=== PATIENT | female | born 1940 ===

== ENCOUNTER 2017-08-10 13:04 | Emergency (ER) | payer MEDICARE, MEDICAID ==
[2017-08-10 13:04] VITALS: BMI 32.4
[2017-08-10 13:09] VITALS: TEMP 98; O2SAT 94
[2017-08-10] MEDS ORDERED: Sodium Chloride 0.9% 1,000 ML IV STA (13:26)
--- NOTE | 2017-08-10 13:28 | ED PDOC ---
Syncope/Near Syncope/Dizziness Time Seen by Provider: 08/10/17 13:14 Chief Complaint (Nursing): Weakness/Neurological Deficit Chief Complaint (Provider): Weakness and Dizziness History Per: Patient History/Exam Limitations: no limitations Onset/Duration Of Symptoms: Hrs (prior to arrival ) Additional Complaint(s): Lakesha Johnson is a 77 year old female with a past medical history of arthritis, hypertension, hyperthyroidism, malignancy, CAD, osteoporosis, and diabetes presenting to the ED for an evaluation of feeling weak and dizzy while walking earlier today. She denies any loss of consciousness, chest pain, palpitations, or shortness of breath. The patients states the patient became pale but then recovered. PMD: Ba Granados MD Past Medical History Reviewed: Historical Data, Nursing Documentation, Vital Signs Vital Signs: Last Vital Signs Temp 98.0 F 08/10/17 13:05 Pulse 78 08/10/17 13:05 Resp 16 08/10/17 13:05 BP 93/47 L 08/10/17 13:05 Pulse Ox 94 L 08/10/17 13:05 - Medical History PMH: Arthritis, CAD, Diabetes, HTN, Hyperthyroidism, Malignancy, Osteoporosis Denies: CHF, COPD, HIV, Hypercholesterolemia, Hypothyroidism, Chronic Kidney Disease, Rheumatoid Arthritis - Surgical History Surgical History: Appendectomy - Family History Family History: States: Unknown Family Hx - Home Medications Home Medications: Ambulatory Orders Medication Instructions Recorded amLODIPine [Norvasc] 1 tab PO DAILY 03/08/15 Acetaminophen [Tylenol 325mg tab] 650 mg PO Q6 PRN #0 tab 03/24/15 Carvedilol [Coreg] 12.5 mg PO Q12 #0 tab 03/24/15 Losartan [Cozaar] 100 mg PO DAILY 03/24/15 methIMAzole [Tapazole] 10 mg PO DAILY #0 tab 03/24/15 Omeprazole [Prilosec] 20 mg PO DAILY 03/31/15 Potassium Chloride [K-Dur 10] 10 meq PO DAILY 03/31/15 predniSONE [Prednisone] 10 mg PO DAILY 03/31/15 - Allergies Allergies/Adverse Reactions: Allergies Allergy/AdvReac Type Severity Reaction Status Date / Time No Known Allergies Allergy Verified 08/10/17 13:05 Review of Systems ROS Statement: Except As Marked, All Systems Reviewed And Found Negative Constitutional: Positive for: Weakness Cardiovascular: Negative for: Chest Pain, Palpitations Respiratory: Negative for: Shortness of Breath Neurological: Positive for: Dizziness Physical Exam - Reviewed Nursing Documentation Reviewed: Yes Vital Signs Reviewed: Yes - Physical Exam Appears: Positive for: Non-toxic, No Acute Distress Head Exam: Positive for: ATRAUMATIC, NORMOCEPHALIC Skin: Positive for: Normal Color, Warm, Dry Eye Exam: Positive for: Normal appearance, EOMI, PERRL ENT: Positive for: Normal ENT Inspection Neck: Positive for: Normal, Painless ROM Cardiovascular/Chest: Positive for: Regular Rate, Rhythm, Chest Non Tender Respiratory: Positive for: Normal Breath Sounds. Negative for: Respiratory Distress Gastrointestinal/Abdominal: Positive for: Normal Exam, Soft. Negative for: Tenderness Back: Positive for: Normal Inspection Extremity: Positive for: Normal ROM. Negative for: Deformity Neurologic/Psych: Positive for: Alert, Oriented (x3). Negative for: Motor/ Sensory Deficits - Laboratory Results Result Diagrams: 08/10/17 14:18 08/10/17 14:18 - ECG ECG: Positive for: Interpreted By Me, Viewed By Me ECG Rhythm: Positive for: Sinus Rhythm (normal). Negative for: ST/T Changes Rate: 80 O2 Sat by Pulse Oximetry: 94 (RA) Pulse Ox Interpretation: Normal Medical Decision Making Medical Decision Making: Time: 13:14 Impression: Weakness and Dizziness Plan: * ED EKG * CMP * CBC (With differential) * NS 1,000 ml IV 100 mls/hr * Reevaluation Scribe Attestation: Documented by Alba Steel, acting as a scribe for Gerhard Price MD. Provider Scribe Attestation: All medical record entries made by the Scribe were at my direction and personally dictated by me. I have reviewed the chart and agree that the record accurately reflects my personal performance of the history, physical exam, medical decision making, and the department course for this patient. I have also personally directed, reviewed, and agree with the discharge instructions and disposition. Disposition - Clinical Impression Clinical Impression: Hypokalemia - Patient ED Disposition Is Patient to be Admitted: No Counseled Patient/Family Regarding: Studies Performed, Diagnosis, Need For Followup, Rx Given - Disposition Referrals: [facility] [Outside] Disposition: Routine/Home Disposition Time: 17:05 Condition: FAIR Instructions: Hypokalemia (ED) Forms: [employer] ([employer]w[place])
[2017-08-10 13:32] VITALS: PULSE 80
[2017-08-10 14:35] LABS: BASO % 0.4 % (0.0-2.0); EOS # 0.5 K/uL (0.0-0.7); EOS % 4.7 % (0.0-4.0); HEMATOCRIT 38.5 % (34.0-47.0); LYMPH % 21.1 % (20.0-40.0); MEAN CELL VOLUME 89.2 fl (81.0-99.0); MEAN CORPUSCULAR HEMOGLOBIN 28.6 pg (27.0-31.0); MEAN PLATELET VOLUME 8.5 fl (7.2-11.7); MONO # 0.6 K/uL (0.0-0.8); MONO % 5.8 % (0.0-10.0); NEUT # 6.6 K/uL (1.8-7.0); RED CELL DISTRIBUTION WIDTH 15.2 % (11.5-14.5); WHITE BLOOD COUNT 9.7 K/uL (4.8-10.8)
[2017-08-10 14:40] LABS: BILIRUBIN,TOTAL 0.6 mg/dl (0.2-1.3); CALCIUM 8.8 mg/dL (8.4-10.2); TOTAL PROTEIN 7.6 G/DL (6.3-8.2)
[2017-08-10] MEDS ORDERED: Potassium CL 10mEq/100ml 100 ML IVPB ONE (14:45)
[2017-08-10] MEDS ORDERED: Potassium Chloride 20 mEq ER Tab PO ONE ×2 (14:45→15:34)
[2017-08-10 17:45] VITALS: RESP 14
[2017-08-10 17:46] VITALS: BP 129/81
--- NOTE | 2017-08-11 07:34 | CARD ---
APPROVED REPORT EKG Measurement Heart [id number] <Conclusion> Sinus rhythm with premature atrial complexes Left axis deviation Prolonged QT Abnormal ECG
== END 2017-08-10 17:10 | disposition home or self-care (01) ==
LOC: H.ER 13:04
DX: E87.6 Hypokalemia (principal); E05.90 Thyrotoxicosis, unspecified without thyrotoxic crisis or storm; E11.9 Type 2 diabetes mellitus without complications; I10 Essential (primary) hypertension; I25.10 Atherosclerotic heart disease of native coronary artery without angina pectoris; I49.1 Atrial premature depolarization; M81.0 Age-related osteoporosis without current pathological fracture
CPT/HCPCS: 80053; 82948; 85025; 93005; 99285; J3480; J7040

== ENCOUNTER 2017-12-03 13:40 | Emergency (ER) | payer MEDICARE, MEDICAID ==
[2017-12-03 13:40] VITALS: BMI 32.4
[2017-12-03] MEDS ORDERED: Sodium Chloride 0.9% 1,000 ML IV STA (15:23)
--- NOTE | 2017-12-03 15:26 | ED PDOC ---
HPI: Abdomen Time Seen by Provider: 12/03/17 14:43 Chief Complaint (Nursing): GI Problem Chief Complaint (Provider): "flu" History Per: Patient Additional Complaint(s): 77 yp female, PMH of HTN and DM, presents to ED for evaluation of tactile fever , congestion, coughing, generalized weakness, abdominal pain radiating to back, diarrhea x 2 days, with nausea. Vomited x 1 this morning. Pt did not recieve flu shot this year. Pt admits to not eating and drinking much she she has been sick. Past Medical History Reviewed: Historical Data, Nursing Documentation, Vital Signs Vital Signs: Last Vital Signs Temp 98.2 F 12/03/17 17:59 Pulse 72 12/03/17 17:59 Resp 18 12/03/17 17:59 BP 137/73 12/03/17 17:59 Pulse Ox 97 12/03/17 17:59 - Medical History PMH: Arthritis, CAD, Diabetes, HTN, Hyperthyroidism, Malignancy, Osteoporosis Denies: CHF, COPD, HIV, Hypercholesterolemia, Hypothyroidism, Chronic Kidney Disease, Rheumatoid Arthritis - Surgical History Surgical History: Appendectomy - Family History Family History: States: Unknown Family Hx - Living Arrangements Living Arrangements: With Family - Social History Current smoker - smoking cessation education provided: No Alcohol: None Drugs: Denies - Home Medications Home Medications: Ambulatory Orders Medication Instructions Recorded amLODIPine [Norvasc] 1 tab PO DAILY 03/08/15 Acetaminophen [Tylenol 325mg tab] 650 mg PO Q6 PRN #0 tab 03/24/15 Carvedilol [Coreg] 12.5 mg PO Q12 #0 tab 03/24/15 Losartan [Cozaar] 100 mg PO DAILY 03/24/15 methIMAzole [Tapazole] 10 mg PO DAILY #0 tab 03/24/15 Omeprazole [Prilosec] 20 mg PO DAILY 03/31/15 Potassium Chloride [K-Dur 10] 10 meq PO DAILY 03/31/15 predniSONE [Prednisone] 10 mg PO DAILY 03/31/15 Ibuprofen [Motrin Tab] 800 mg PO Q8 #20 tab 12/03/17 Oseltamivir [Tamiflu] 75 mg PO BID 5 Days cap 12/03/17 - Allergies Allergies/Adverse Reactions: Allergies Allergy/AdvReac Type Severity Reaction Status Date / Time No Known Allergies Allergy Verified 10/18/17 13:05 Review of Systems ROS Statement: Except As Marked, All Systems Reviewed And Found Negative Constitutional: Positive for: Fever, Weakness ENT: Positive for: Nose Congestion Respiratory: Positive for: Cough Gastrointestinal: Positive for: Nausea, Vomiting, Abdominal Pain, Diarrhea Physical Exam - Reviewed Nursing Documentation Reviewed: Yes Vital Signs Reviewed: Yes - Physical Exam Appears: Positive for: Well, Non-toxic, No Acute Distress Head Exam: Positive for: ATRAUMATIC, NORMAL INSPECTION, NORMOCEPHALIC Skin: Positive for: Normal Color, Warm, DRY Eye Exam: Positive for: EOMI, Normal appearance, PERRL ENT: Positive for: Normal ENT Inspection Neck: Positive for: Normal, Painless ROM Cardiovascular/Chest: Positive for: Regular Rate, Rhythm Respiratory: Positive for: CNT, Normal Breath Sounds Gastrointestinal/Abdominal: Positive for: Normal Exam, Bowel Sounds, Soft Back: Positive for: Normal Inspection Extremity: Positive for: Normal ROM Neurologic/Psych: Positive for: Alert, Oriented - Laboratory Results Result Diagrams: 12/03/17 15:50 12/03/17 15:50 - ECG O2 Sat by Pulse Oximetry: 98 Medical Decision Making Medical Decision Making: IV access established and treatment initiated with IVF and Zofran Diagnostics ordered Flu (+) CXR: NAD, as read by [facility] CBC resulted WNL COMP BUN 32, Cr 2.0 On re-eval, Pt reports feeling greatly improved Repeat vitals: T: 98.2 F P: 72 BP: 137/73 POX: 97% on RA Pt stable for discharge at this time. advised to follow up with PMD, return to ED with any concerns. Disposition - Clinical Impression Clinical Impression: Influenza - Patient ED Disposition Is Patient to be Admitted: No - Disposition Referrals: Ba Granados MD [Primary Care Provider] - Disposition: Routine/Home Disposition Time: 18:31 Condition: STABLE Prescriptions: Ibuprofen [Motrin Tab] 800 mg PO Q8 #20 tab Oseltamivir [Tamiflu] 75 mg PO BID 5 Days cap Instructions: Influenza (ED) Forms: [employer] (Ukrainian) Print Language: KOREAN - POA Present On Arrival: None
[2017-12-03 16:05] LABS: BASO # 0.1 K/uL (0.0-0.2); EOS % 0.4 % (0.0-4.0); HEMOGLOBIN 13.7 g/dL (12.0-16.0); LYMPH # 1.6 K/uL (1.0-4.3); LYMPH % 23.3 % (20.0-40.0); MEAN CORPUSCULAR HEMOGLOBIN 29.1 pg (27.0-31.0); MEAN CORPUSCULAR HGB CONC 33.3 g/dL (33.0-37.0); MEAN PLATELET VOLUME 8.5 fl (7.2-11.7); MONO # 0.7 K/uL (0.0-0.8); MONO % 10.8 % (0.0-10.0); NEUT # 4.3 K/uL (1.8-7.0); NEUT % 64.5 % (50.0-75.0); NRBC % 0.1 % (0.0-0.0); RBC 4.72 Mil/uL (3.80-5.20); RED CELL DISTRIBUTION WIDTH 15.5 % (11.5-14.5); WHITE BLOOD COUNT 6.7 K/uL (4.8-10.8)
[2017-12-03 16:10] LABS: MEAN CELL VOLUME 87.2 fl (81.0-99.0)
[2017-12-03 16:14] LABS: CALCIUM 8.6 mg/dL (8.4-10.2)
[2017-12-03 16:25] LABS: ALBUMIN 4.3 g/dL (3.5-5.0)
[2017-12-03 16:29] LABS: TROPONIN I 0.064 ng/mL (0.00-0.120)
--- NOTE | 2017-12-03 16:41 | RAD ---
HISTORY: cough and fever COMPARISON: Comparison chest 03/25/2015. Comparison also made with CTA of the chest dated 03/08/2015 TECHNIQUE: Chest PA and lateral FINDINGS: LUNGS: Linear atelectasis/ scarring seen in the right mid to upper lung field. Mild bibasilar atelectasis. PLEURA: No significant pleural effusion identified. No pneumothorax apparent. CARDIOVASCULAR: Heart appears borderline/ mildly enlarged. OSSEOUS STRUCTURES: Multilevel degenerative spondylosis of the thoracic spine. Minor chronic anterior wedge deformities of a few mid thoracic segments. VISUALIZED UPPER ABDOMEN: Normal. OTHER FINDINGS: Apparent multiple metallic clips overlying the upper mediastinum likely due to thyroidectomy however correlation with surgical history recommended. . Note that the there was marked enlargement right lobe thyroid gland on prior CTA chest. IMPRESSION: Linear atelectasis/ scarring seen in the right mid to upper lung field. Mild bibasilar atelectasis.
[2017-12-03 18:00] VITALS: BP 137/73; PULSE 72; RESP 18; TEMP 98.2
[2017-12-03 18:27] VITALS: O2SAT 98
== END 2017-12-03 18:25 | disposition home or self-care (01) ==
LOC: H.ER 13:40
DX: J11.1 Influenza due to unidentified influenza virus with other respiratory manifestations (principal); R10.9 Unspecified abdominal pain; R19.7 Diarrhea, unspecified; E05.90 Thyrotoxicosis, unspecified without thyrotoxic crisis or storm; E11.9 Type 2 diabetes mellitus without complications; I10 Essential (primary) hypertension; I25.10 Atherosclerotic heart disease of native coronary artery without angina pectoris; M81.0 Age-related osteoporosis without current pathological fracture
CPT/HCPCS: 71046; 80053; 82150; 83690; 84484; 85025; 87804; 96361; 96374; 99285; J2405; J7040

== ENCOUNTER 2017-12-04 12:43 | Inpatient (IN) | payer MEDICARE, MEDICAID ==
[2017-12-04] MEDS ORDERED: Sodium Chloride 0.9% 1,000 ML IV STA (12:59)
--- NOTE | 2017-12-04 13:04 | ED PDOC ---
Syncope/Near Syncope/Dizziness Time Seen by Provider: 12/04/17 12:54 Chief Complaint (Nursing): Syncope History Per: Family Onset/Duration Of Symptoms: Days (1) Current Symptoms Are (Timing): Still Present Activity At Onset Of Symptoms: Sitting Additional Complaint(s): Nausea and vomiting, Seen yesterday with Flu-like sxs, statred on Tamiflu. Vomited today, while going to bathroom son states had syncopal episode unknown duration. No fever, has been coughing. Past Medical History Vital Signs: Last Vital Signs Temp 97.9 F 12/04/17 12:45 Pulse 78 12/04/17 12:45 Resp 16 12/04/17 12:45 BP 80/50 L 12/04/17 12:45 Pulse Ox 98 12/04/17 12:45 - Medical History PMH: Arthritis, CAD, Diabetes, HTN, Hyperthyroidism, Malignancy, Osteoporosis Denies: CHF, COPD, HIV, Hypercholesterolemia, Hypothyroidism, Chronic Kidney Disease, Rheumatoid Arthritis - Surgical History Surgical History: Appendectomy - Family History Family History: States: Unknown Family Hx - Immunization History Hx Tetanus Toxoid Vaccination: No Hx Influenza Vaccination: No Hx Pneumococcal Vaccination: No - Home Medications Home Medications: Ambulatory Orders Medication Instructions Recorded amLODIPine [Norvasc] 1 tab PO DAILY 03/08/15 Acetaminophen [Tylenol 325mg tab] 650 mg PO Q6 PRN #0 tab 03/24/15 Carvedilol [Coreg] 12.5 mg PO Q12 #0 tab 03/24/15 Losartan [Cozaar] 100 mg PO DAILY 03/24/15 methIMAzole [Tapazole] 10 mg PO DAILY #0 tab 03/24/15 Omeprazole [Prilosec] 20 mg PO DAILY 03/31/15 Potassium Chloride [K-Dur 10] 10 meq PO DAILY 03/31/15 predniSONE [Prednisone] 10 mg PO DAILY 03/31/15 Ibuprofen [Motrin Tab] 800 mg PO Q8 #20 tab 12/03/17 Oseltamivir [Tamiflu] 75 mg PO BID 5 Days cap 12/03/17 - Allergies Allergies/Adverse Reactions: Allergies Allergy/AdvReac Type Severity Reaction Status Date / Time No Known Allergies Allergy Verified 08/10/17 13:05 Review of Systems ROS Statement: Except As Marked, All Systems Reviewed And Found Negative Constitutional: Positive for: Weakness Respiratory: Positive for: Cough Gastrointestinal: Positive for: Vomiting Neurological: Positive for: Other (syncope) Physical Exam - Reviewed Nursing Documentation Reviewed: Yes Vital Signs Reviewed: Yes - Physical Exam Appears: Positive for: Non-toxic, No Acute Distress Head Exam: Positive for: ATRAUMATIC, NORMAL INSPECTION, NORMOCEPHALIC Skin: Positive for: Warm, Pallor Eye Exam: Positive for: EOMI, Normal appearance, PERRL ENT: Positive for: Normal ENT Inspection Neck: Positive for: Normal, Painless ROM Cardiovascular/Chest: Positive for: Regular Rate, Rhythm Respiratory: Positive for: Rhonchi. Negative for: Wheezing, Respiratory Distress Gastrointestinal/Abdominal: Positive for: Normal Exam, Bowel Sounds, Soft Back: Positive for: Normal Inspection Extremity: Positive for: Normal ROM Neurologic/Psych: Positive for: Alert, Oriented. Negative for: Motor/Sensory Deficits - Laboratory Results Result Diagrams: 12/04/17 13:20 - ECG O2 Sat by Pulse Oximetry: 98 Disposition - Clinical Impression Clinical Impression: Syncope, Influenza - Patient ED Disposition Is Patient to be Admitted: Yes - Disposition Disposition Time: 15:37 Condition: FAIR Forms: [employer] (Turkish) - Pt Status Changed To: Hospital Disposition Of: Observation - POA Present On Arrival: None
[2017-12-04 14:00] LABS: VENOUS BLOOD GAS BASE EXCESS 2.5 mmol/L (0.0-2.0); VENOUS BLOOD GAS PCO2 53 mmHg (40-60); VENOUS BLOOD GAS PO2 35 mm/Hg (30-55); VENOUS BLOOD PH 7.35 (7.32-7.43)
--- NOTE | 2017-12-04 14:09 | CT ---
PROCEDURE: CT HEAD WITHOUT CONTRAST. HISTORY: r/o bleed COMPARISON: None available. TECHNIQUE: Axial computed tomography images were obtained through the head/brain without intravenous contrast. Radiation dose: Total exam DLP = 1338.27 mGy-cm. This CT exam was performed using one or more of the following dose reduction techniques: Automated exposure control, adjustment of the mA and/or kV according to patient size, and/or use of iterative reconstruction technique. FINDINGS: HEMORRHAGE: No intracranial hemorrhage. BRAIN: Examination limited by extensive patient motion artifact despite attempts at repeat imaging of the posterior fossa. No intracranial mass. No significant atrophy. No white matter ischemic change evident. VENTRICLES: Unremarkable. No hydrocephalus. CALVARIUM: Unremarkable. PARANASAL SINUSES: Unremarkable as visualized. No significant inflammatory changes. MASTOID AIR CELLS: Unremarkable as visualized. No inflammatory changes. OTHER FINDINGS: None. IMPRESSION: Limited examination due to patient motion. No intracranial hemorrhage. No evidence of acute infarct.
[2017-12-04 14:16] LABS: BASO # 0.1 K/uL (0.0-0.2); BASO % 0.8 % (0.0-2.0); EOS % 0.4 % (0.0-4.0); HEMOGLOBIN 13.3 g/dL (12.0-16.0); LYMPH # 1.6 K/uL (1.0-4.3); LYMPH % 23.1 % (20.0-40.0); MEAN CELL VOLUME 87.8 fl (81.0-99.0); MEAN CORPUSCULAR HEMOGLOBIN 28.9 pg (27.0-31.0); MEAN CORPUSCULAR HGB CONC 32.9 g/dL (33.0-37.0); MEAN PLATELET VOLUME 8.6 fl (7.2-11.7); MONO # 0.5 K/uL (0.0-0.8); MONO % 6.7 % (0.0-10.0); NEUT # 4.8 K/uL (1.8-7.0); NRBC % 0.1 % (0.0-0.0); RBC 4.59 Mil/uL (3.80-5.20)
[2017-12-04 17:11] LABS: ALB/GLOB RATIO 0.9 (1.0-2.1); ALBUMIN 3.6 g/dL (3.5-5.0); CALCIUM 7.8 mg/dL (8.4-10.2)
[2017-12-04] MEDS ORDERED: Potassium Chloride 20 mEq ER Tab PO ONE ×2 (17:14→18:13)
[2017-12-04] MEDS ORDERED: Sodium Chloride 0.9% 1,000 ML IV SCH (21:45)
--- NOTE | 2017-12-04 21:50 | CP.PCM.HP ---
History of Present Illness - History of Present Illness History of Present Illness: CC: dizziness/syncope; influenza HPI: This is a 77 y/o female with MHx of CAD, HTN, hyperthyroid, and ?DM2 who came to the ER yesterday and was dx'ed with influenza. She went home at the time on Tamiflu. Today she had n/v and a syncopal episode of unknown time. Currently no f/c. +n/v today. No CP, SOB. ROS: 14 systems reviewed, negative other than HPI MHx: CAD, HTN, Hyperthyroid, osteoporosis, osteoarthritis SHx: Appx Allergies: NKDA Medications: Per med rec Family Hx: No relevant family history on inquiry Social Hx: Lives at home with family, no tobacco, no EtOH Surrogate Decision Maker: Information on chart Present on Admission - Present on Admission Any Indicators Present on Admission: No Past Patient History - Past Medical History & Family History Past Medical History?: Yes - Past Social History Smoking Status: Former Smoker - CARDIAC Hx Congestive Heart Failure: No Hx Hypercholesterolemia: No Hx Hypertension: Yes - PULMONARY Hx Chronic Obstructive Pulmonary Disease (COPD): No - NEUROLOGICAL HX Cerebrovascular Accident: No - HEENT Hx HEENT Problems: Yes Hx Cataracts: Yes - RENAL Hx Chronic Kidney Disease: No - ENDOCRINE/METABOLIC Hx Hyperthyroidism: Yes Hx Hypothyroidism: No - HEMATOLOGICAL/ONCOLOGICAL Hx Human Immunodeficiency Virus (HIV): No - INTEGUMENTARY Hx Dermatological Problems: No - MUSCULOSKELETAL/RHEUMATOLOGICAL Hx Arthritis: Yes Hx Osteoporosis: Yes Hx Rheumatoid Arthritis: No - GASTROINTESTINAL Hx Gastrointestinal Disorders: No - GENITOURINARY/GYNECOLOGICAL Hx Genitourinary Disorders: No - PSYCHIATRIC Hx Psychophysiologic Disorder: No Hx Substance Use: No - SURGICAL HISTORY Hx Appendectomy: Yes - ANESTHESIA Hx Anesthesia: Yes Hx Anesthesia Reactions: No Meds Allergies/Adverse Reactions: Allergies Allergy/AdvReac Type Severity Reaction Status Date / Time No Known Allergies Allergy Verified 08/10/17 13:05 Physical Exam - Constitutional Appears: No Acute Distress - Head Exam Head Exam: ATRAUMATIC, NORMOCEPHALIC - Eye Exam Eye Exam: EOMI, PERRL - ENT Exam ENT Exam: Mucous Membranes Dry - Neck Exam Neck exam: Positive for: Full Rom - Respiratory Exam Respiratory Exam: Clear to Auscultation Bilateral, NORMAL BREATHING PATTERN - Cardiovascular Exam Cardiovascular Exam: REGULAR RHYTHM, +S1, +S2 - GI/Abdominal Exam GI & Abdominal Exam: Normal Bowel Sounds, Soft - Extremities Exam Extremities exam: Positive for: full ROM, normal inspection - Neurological Exam Neurological exam: Alert, CN II-XII Intact, Oriented x3 - Psychiatric Exam Psychiatric exam: Normal Affect, Normal Mood - Skin Skin Exam: Dry, Warm Results - Vital Signs Recent Vital Signs: Last Vital Signs Temp 97.9 F 12/04/17 12:45 Pulse 79 12/04/17 19:30 Resp 16 12/04/17 19:30 BP 116/61 12/04/17 19:30 Pulse Ox 96 12/04/17 19:30 - Labs Result Diagrams: 12/04/17 13:20 12/04/17 16:50 Labs: Laboratory Results - last 24 hr 12/04/17 12/04/17 12/04/17 13:20 13:56 16:50 WBC 7.0 RBC 4.59 Hgb 13.3 Hct 40.3 MCV 87.8 MCH 28.9 MCHC 32.9 L RDW 16.0 H Plt Count 231 MPV 8.6 Neut % (Auto) 69.0 Lymph % (Auto) 23.1 [place] % (Auto) 6.7 Eos % (Auto) 0.4 Baso % (Auto) 0.8 Neut # (Auto) 4.8 Lymph # (Auto) 1.6 [place] # (Auto) 0.5 Eos # (Auto) 0.0 Baso # (Auto) 0.1 pO2 35 VBG pH 7.35 VBG pCO2 53 VBG HCO3 26.0 VBG Total CO2 30.9 H VBG O2 Sat (Calc) 73.3 H VBG Base Excess 2.5 H VBG Potassium 3.5 L Sodium 134.0 138 Chloride 96.0 L 98 Glucose 138 H Lactate 1.4 FiO2 21.0 Potassium 3.0 L Carbon Dioxide 28 Anion Gap 15 BUN 32 H Creatinine 1.6 H Est GFR ( Amer) 38 Est GFR (Non-Af Amer) 31 Random Glucose 122 H Calcium 7.8 L Total Bilirubin 0.5 AST 34 ALT 23 Alkaline Phosphatase 74 Total Protein 7.4 Albumin 3.6 Globulin 3.9 Albumin/Globulin Ratio 0.9 L Venous Blood Potassium 3.5 L - Imaging and Cardiology CT scan - head Status: Report reviewed by me (Shows no acute findings) Chest x-ray Status: Image reviewed by me (No acute findings) Assessment & Plan (1) Syncope Assessment and Plan: 77 y/o female with episode of syncope in setting of flu with n/v. 1) Syncope -- may be vasovagal or from vol dep; will r/o other causes -tele obs -EKG -aggressively hydrate -consider Echo if warranted 2) Influenza -- cont tamiflu 3) HTN -- will hold BP medications for now as BP on lower side 4) Hyperthyroid -- cont home medications 5) DVT PPx -- SQ Lovenox Status: Acute (2) Influenza Status: Acute (3) Hyperthyroidism Status: Acute (4) HTN (hypertension) Status: Acute
[2017-12-05 05:21] LABS: CALCIUM 7.8 mg/dL (8.4-10.2)
[2017-12-05 05:31] LABS: TROPONIN I 0.024 ng/mL (0.00-0.120)
[2017-12-05 06:00] LABS: MEAN CELL VOLUME 87.7 fl (81.0-99.0); MEAN CORPUSCULAR HEMOGLOBIN 28.8 pg (27.0-31.0); MEAN CORPUSCULAR HGB CONC 32.8 g/dL (33.0-37.0); RBC 4.17 Mil/uL (3.80-5.20); RED CELL DISTRIBUTION WIDTH 15.3 % (11.5-14.5); WHITE BLOOD COUNT 5.5 K/uL (4.8-10.8)
[2017-12-05 06:32] VITALS: BMI 35.5
[2017-12-05] MEDS ORDERED: Potassium Chloride 20 mEq ER Tab PO ONE (06:54)
--- NOTE | 2017-12-05 07:27 | CARD ---
APPROVED REPORT EKG Measurement Heart [id number] <Conclusion> Normal sinus rhythm Left axis deviation Prolonged QT Abnormal ECG
[2017-12-05] MEDS ORDERED: Pneumococcal 23-Valent Vaccine IM ONE (08:00)
[2017-12-05] MEDS: Enoxaparin 40 mg Syringe SC SCH (08:37)
--- NOTE | 2017-12-05 22:47 | CP.PCM.PN ---
Subjective - Date & Time of Evaluation Date of Evaluation: 12/05/17 Time of Evaluation: 10:30 - Subjective Subjective: Patient feels a lot better. Has no chest pain or SOB or dizziness Afebrile BP has been stable Objective - Vital Signs/Intake and Output Vital Signs (last 24 hours): Temp Pulse Resp BP Pulse Ox 98.1 F 72 25 H 127/70 100 12/05/17 19:38 12/05/17 19:38 12/05/17 19:38 12/05/17 19:38 12/05/17 19:38 Intake and Output: 12/05/17 12/06/17 18:59 06:59 Intake Total 1480 Balance 1480 - Medications Medications: Current Medications Acetaminophen (Tylenol 325mg Tab) 650 mg PO Q6 PRN PRN Reason: Pain, Mild (1-3) or headache Enoxaparin Sodium (Lovenox) 40 mg SC DAILY DAX PRN Reason: Protocol Last Admin: 12/05/17 08:37 Dose: 40 mg Methimazole (Tapazole) 10 mg PO DAILY [facility] Last Admin: 12/05/17 08:36 Dose: 10 mg Oseltamivir Phosphate (Tamiflu Cap) 75 mg PO BID DAX PRN Reason: Protocol Last Admin: 12/05/17 17:27 Dose: 75 mg - Labs Labs: 12/05/17 04:40 12/05/17 04:40 - Head Exam Head Exam: NORMAL INSPECTION - Eye Exam Eye Exam: Normal appearance - ENT Exam ENT Exam: Mucous Membranes Moist - Respiratory Exam Respiratory Exam: Clear to Ausculation Bilateral - Cardiovascular Exam Cardiovascular Exam: REGULAR RHYTHM - GI/Abdominal Exam GI & Abdominal Exam: Normal Bowel Sounds - Neurological Exam Neurological Exam: CN II-XII Intact, Oriented x3 - Psychiatric Exam Psychiatric exam: Normal Mood - Skin Skin Exam: Normal Color Assessment and Plan (1) Syncope Status: Acute (2) Hyperthyroidism Status: Acute (3) Influenza Status: Acute (4) HTN (hypertension) Status: Acute (5) Dehydration Status: Acute - Assessment and Plan (Free Text) Plan: Cont meds Cont tx Cont hydration Phys therapy DC plan for AM. potassium supplement
[2017-12-06 05:54] LABS: HEMOGLOBIN 12.8 g/dL (12.0-16.0); MEAN CELL VOLUME 87.8 fl (81.0-99.0); MEAN CORPUSCULAR HEMOGLOBIN 28.9 pg (27.0-31.0); MEAN CORPUSCULAR HGB CONC 32.9 g/dL (33.0-37.0); RBC 4.44 Mil/uL (3.80-5.20); WHITE BLOOD COUNT 5.4 K/uL (4.8-10.8)
[2017-12-06 08:41] VITALS: BP 155/76
[2017-12-06] MEDS ORDERED: Potassium Chloride 20 mEq ER Tab PO SCH (09:00)
[2017-12-06] MEDS ORDERED: Influenza Vaccine 18yr & older 0.5 ML/45 MCG SYR IM ONE (09:20)
[2017-12-06] MEDS: Enoxaparin 40 mg Syringe SC SCH (09:23)
--- NOTE | 2017-12-06 10:23 | PQF GENQUE ---
Dr. Harden, Is there an associated diagnosis to go along with the following clinical labs: BUN:32->30->24 Creatinine:1.6->1.4->1.1 Est GFR ( Amer/Non--Af Amer):38/31->44/36->58/48 OR: Disagree OR: Unable to determine H and P:Assessment and Plan: 77 y/o female with episode of syncope in setting of flu with n/v. 1) Syncope -- may be vasovagal or from vol dep; will r/o other causes -tele obs -EKG -aggressively hydrate -consider Echo if warranted 2) Influenza -- cont tamiflu 3) HTN -- will hold BP medications for now as BP on lower side 4) Hyperthyroid -- cont home medications 5) DVT PPx -- SQ Lovenox Status: Acute (2) Influenza Status: Acute (3) Hyperthyroidism Status: Acute (4) HTN (hypertension) Status: Acute Sodium Chloride 1000 ccs IV 1,000 ccs hr..->100 ccs.hr This form is a permanent part of the medical record Clarification of your documentation is requested to better reflect the severity of illness and intensity of treatment of your patient. Indicators present [] Specify: [] [] Specify: [] [] Specify: [] [] Specify: [] Location in the medical record that reflects the above clinical findings: [] Treatment Provided: [] PHYSICIAN'S RESPONSE Based on your medical judgment of the clinical indicators outlined above please clarify the following: [] Practitioner response [] If unable to determine, please check the box, sign and date. Present On Admission (POA) Indicator: [] Present at the time of admission [] Not present at the time of admission [] Clinically Undetermined In responding to this query, please exercise your independent professional judgment. The fact that a question is asked does not imply that any particular answer is desired or expected. Thank you for your clarification on this documentation. If you have any questions please call. * Thank you, Renuka Underwood RN ext. #[phone] MTDD
--- NOTE | 2017-12-06 10:38 | PQF GENQUE ---
Dr. Harden, Is there an associated dx. to go along with the following clinical lab:Potassium :3.0->3.1->3.3 OR:Disagree OR: Other explanation of clinical finding H and P: Assessment Plan : Assessment :77 y/o female with episode of syncope in setting of flu with n/v. 1) Syncope -- may be vasovagal or from vol dep; will r/o other causes -tele obs -EKG -aggressively hydrate -consider Echo if warranted 2) Influenza -- cont tamiflu 3) HTN -- will hold BP medications for now as BP on lower side 4) Hyperthyroid -- cont home medications 5) DVT PPx -- SQ Lovenox Status: Acute (2) Influenza Status: Acute (3) Hyperthyroidism Status: Acute (4) HTN (hypertension) Status: Acute 12/04:Physician orders for Potassium Chloride 40 meq. PO Once and 12/05; two doses of oral Potassium This form is a permanent part of the medical record Clarification of your documentation is requested to better reflect the severity of illness and intensity of treatment of your patient. Indicators present [] Specify: [] [] Specify: [] [] Specify: [] [] Specify: [] Location in the medical record that reflects the above clinical findings: [] Treatment Provided: [] PHYSICIAN'S RESPONSE Based on your medical judgment of the clinical indicators outlined above please clarify the following: [] Practitioner response [] If unable to determine, please check the box, sign and date. Present On Admission (POA) Indicator: [] Present at the time of admission [] Not present at the time of admission [] Clinically Undetermined In responding to this query, please exercise your independent professional judgment. The fact that a question is asked does not imply that any particular answer is desired or expected. Thank you for your clarification on this documentation. If you have any questions please call. * Thank you, Renuka Underwood RN ext. #[phone] MTDD
[2017-12-06 13:42] VITALS: PULSE 83; RESP 20; TEMP 98.1; O2SAT 98
--- NOTE | 2017-12-06 14:49 | CP.PCM.DIS ---
Provider - Provider Date of Admission: 12/05/17 18:08 Attending physician: Danyel Harden MD Time Spent in preparation of Discharge (in minutes): 30 Diagnosis - Discharge Diagnosis (1) Influenza Status: Acute Hospital Course - Lab Results Lab Results: Micro Results 12/04/17 18:25 Urine,Clean Catch Urine Culture - Final Escherichia Coli 12/04/17 16:05 Blood-Venous Blood Culture - Preliminary NO GROWTH AFTER 24 HOURS 12/04/17 15:50 Blood-Venous Blood Culture - Preliminary NO GROWTH AFTER 24 HOURS Most Recent Lab Values WBC 5.4 K/uL (4.8-10.8) 12/06/17 04:35 RBC 4.44 Mil/uL (3.80-5.20) 12/06/17 04:35 Hgb 12.8 g/dL (12.0-16.0) 12/06/17 04:35 Hct 39.0 % (34.0-47.0) 12/06/17 04:35 MCV 87.8 fl (81.0-99.0) 12/06/17 04:35 MCH 28.9 pg (27.0-31.0) 12/06/17 04:35 MCHC 32.9 g/dL (33.0-37.0) L 12/06/17 04:35 RDW 15.0 % (11.5-14.5) H 12/06/17 04:35 Plt Count 260 K/uL (130-400) 12/06/17 04:35 MPV 8.6 fl (7.2-11.7) 12/04/17 13:20 Neut % (Auto) 69.0 % (50.0-75.0) 12/04/17 13:20 Lymph % (Auto) 23.1 % (20.0-40.0) 12/04/17 13:20 [place] % (Auto) 6.7 % (0.0-10.0) 12/04/17 13:20 Eos % (Auto) 0.4 % (0.0-4.0) 12/04/17 13:20 Baso % (Auto) 0.8 % (0.0-2.0) 12/04/17 13:20 Neut # (Auto) 4.8 K/uL (1.8-7.0) 12/04/17 13:20 Lymph # (Auto) 1.6 K/uL (1.0-4.3) 12/04/17 13:20 [place] # (Auto) 0.5 K/uL (0.0-0.8) 12/04/17 13:20 Eos # (Auto) 0.0 K/uL (0.0-0.7) 12/04/17 13:20 Baso # (Auto) 0.1 K/uL (0.0-0.2) 12/04/17 13:20 pO2 35 mm/Hg (30-55) 12/04/17 13:56 VBG pH 7.35 (7.32-7.43) 12/04/17 13:56 VBG pCO2 53 mmHg (40-60) 12/04/17 13:56 VBG HCO3 26.0 mmol/L 12/04/17 13:56 VBG Total CO2 30.9 mmol/L (22-28) H 12/04/17 13:56 VBG O2 Sat (Calc) 73.3 % (40-65) H 12/04/17 13:56 VBG Base Excess 2.5 mmol/L (0.0-2.0) H 12/04/17 13:56 VBG Potassium 3.5 mmol/L (3.6-5.2) L 12/04/17 13:56 Sodium 134.0 mmol/L (132-148) 12/04/17 13:56 Chloride 96.0 mmol/L (98-107) L 12/04/17 13:56 Glucose 138 mg/dL (65-105) H 12/04/17 13:56 Lactate 1.4 mmol/L (0.7-2.1) 12/04/17 13:56 FiO2 21.0 % 12/04/17 13:56 Sodium 142 mmol/l (132-148) 12/06/17 04:35 Potassium 3.3 MMOL/L (3.6-5.0) L 12/06/17 04:35 Chloride 98 mmol/L (98-107) 12/06/17 04:35 Carbon Dioxide 32 mmol/L (22-30) H 12/06/17 04:35 Anion Gap 15 (10-20) 12/06/17 04:35 BUN 24 mg/dl (7-17) H 12/06/17 04:35 Creatinine 1.1 mg/dl (0.7-1.2) 12/06/17 04:35 Est GFR ( Amer) 58 12/06/17 04:35 Est GFR (Non-Af Amer) 48 12/06/17 04:35 POC Glucose (mg/dL) 160 mg/dL (65-110) H 12/06/17 11:23 Random Glucose 90 mg/dL (65-105) 12/06/17 04:35 Calcium 8.0 mg/dL (8.4-10.2) L 12/06/17 04:35 Total Bilirubin 0.5 mg/dl (0.2-1.3) 12/04/17 16:50 AST 34 U/L (14-36) 12/04/17 16:50 ALT 23 U/L (9-52) 12/04/17 16:50 Alkaline Phosphatase 74 U/L (38-126) 12/04/17 16:50 Troponin I 0.0240 ng/mL (0.00-0.120) 12/05/17 04:40 Total Protein 7.4 G/DL (6.3-8.2) 12/04/17 16:50 Albumin 3.6 g/dL (3.5-5.0) 12/04/17 16:50 Globulin 3.9 gm/dL (2.2-3.9) 12/04/17 16:50 Albumin/Globulin Ratio 0.9 (1.0-2.1) L 12/04/17 16:50 Venous Blood Potassium 3.5 mmol/L (3.6-5.2) L 12/04/17 13:56 - Hospital Course Hospital Course: 77 YO F who has been taking medicatiion for the flu was admitted for a syncopal eppisode which appears to be related secondary to dehydration. She is doing well. During patent stay she was noted to have 50,000 to 100,000 bacteria in the urine. She is doing well. No episodes of syncope since patient has been admitted. Patient denies chest pain,SOB, N/V/D Discharge Exam - Head Exam Head Exam: NORMAL INSPECTION - Eye Exam Eye Exam: Normal appearance - Respiratory Exam Respiratory Exam: absent: Rales, Wheezes, Respiratory Distress - Cardiovascular Exam Cardiovascular Exam: +S1, +S2 - GI/Abdominal Exam GI & Abdominal Exam: Normal Bowel Sounds, Soft. absent: Tenderness Discharge Plan - Discharge Medications Prescriptions: Cephalexin [Keflex] 500 mg PO Q8 #21 capsule Oseltamivir [Tamiflu Cap] 75 mg PO BID #8 cap - Follow Up Plan Condition: GOOD Disposition: HOME/ ROUTINE Additional Instructions: follow up with PMD in 1-2 days Referrals: Ba Granados MD [Family Provider] -
--- NOTE | 2017-12-07 08:08 | PQF GENQUE ---
Dr. Harden, Is there an associated diagnosis to go along with the following documentation in the ISigned D/C Summary: During patent stay she was noted to have 50,000 to 100,000 bacteria in the urine. She is doing well. - Discharge Medications : Prescriptions: Cephalexin [Keflex] 500 mg PO Q8 # 21 capsule Oseltamivir [Tamiflu Cap] 75 mg PO BID #8 cap OR: Disagree OR: Other explantion of clinical finding Urine culture: Organism: E-Coli This form is a permanent part of the medical record Clarification of your documentation is requested to better reflect the severity of illness and intensity of treatment of your patient. Indicators present [] Specify: [] [] Specify: [] [] Specify: [] [] Specify: [] Location in the medical record that reflects the above clinical findings: [] Treatment Provided: [] PHYSICIAN'S RESPONSE Based on your medical judgment of the clinical indicators outlined above please clarify the following: [] Practitioner response [] If unable to determine, please check the box, sign and date. Present On Admission (POA) Indicator: [] Present at the time of admission [] Not present at the time of admission [] Clinically Undetermined In responding to this query, please exercise your independent professional judgment. The fact that a question is asked does not imply that any particular answer is desired or expected. Thank you for your clarification on this documentation. If you have any questions please call. * Thank you, Renuka Underwood RN ext. #[phone] MTDD
== END 2017-12-06 16:00 | disposition home or self-care (01) | DRG 641 ==
LOC: H.ER 12:43 → H.ERHOLD 15:36 → H.ICU/CCU 12-05 02:49 → OBSVTOIN 12-05 18:08
PROVIDERS: ADMIT Family Medicine; ATTEND Family Medicine
PROC: 3E0234Z Introduction of Serum, Toxoid and Vaccine into Muscle, Percutaneous Approach (ICD-10-PCS; principal; 2017-12-06)
DX: E87.6 Hypokalemia (principal); E86.0 Dehydration; N39.0 Urinary tract infection, site not specified; E05.90 Thyrotoxicosis, unspecified without thyrotoxic crisis or storm; J11.1 Influenza due to unidentified influenza virus with other respiratory manifestations; B96.20 Unspecified Escherichia coli [E. coli] as the cause of diseases classified elsewhere; R55 Syncope and collapse; I25.10 Atherosclerotic heart disease of native coronary artery without angina pectoris; I10 Essential (primary) hypertension; M81.0 Age-related osteoporosis without current pathological fracture; M19.90 Unspecified osteoarthritis, unspecified site; Z23 Encounter for immunization; Z87.891 Personal history of nicotine dependence